=== PATIENT | female | born 1955 | race Caucasian/White ===

== ENCOUNTER 2018-03-19 19:41 | Emergency (ER) | payer OTHER ==
[~2018-03-19] VITALS: Ht 162.6 cm; Wt 79.4 kg
[~2018-03-19 19:41] MED LIST: BENICAR HCT 201 EACH PO; CELEBREX200 MG PO; JARDIANCE PO; METOPROLOL SUCC50 MG PO; NOVOLOG100 UNIT/1 SQ; OMEPRAZOLE40 MG PO; POTASSIUM CHLO10 ME1 PO; PROZAC20 MG PO; TOUJEO SQ; XANAX0.5 MG PO
[2018-03-19] MEDS ORDERED: SODIUM CHLORIDE 0.9% 1000ML 1,000 ML IV STA (20:32)
[2018-03-19] MEDS ORDERED: HYOSCYAMINE SULFATE 0.5 MG/ML AMP IV ONE (20:45)
[2018-03-19] MEDS ORDERED: METOCLOPRAMIDE HCL 10 MG/2ML VIAL IV ONE (20:45)
[2018-03-19] MEDS ORDERED: DIPHENHYDRAMINE HCL INJ 50 MG/ML VIAL IV ONE (20:45)
[2018-03-19 21:14] LABS: CLARITY,URINE CLEAR (CLEAR); COLOR,URINE YELLOW (YELLOW); KETONES,URINE NEGATIVE (NEGATIVE); LEUKOCYTE ESTERASE ,URINE NEGATIVE (NEGATIVE); NITRITE,URINE NEGATIVE (NEGATIVE); PROTEIN,URINE DIPSTICK 1+ (NEGATIVE); URINE UROBILINOGEN 0.2 mg/dL (0.2 - 1)
[2018-03-19 21:15] LABS: BILIRUBIN,URINE 1+ (NEGATIVE)
[2018-03-19] MEDS ORDERED: DICYCLOMINE HCL 20 MG/2 ML VIAL IM ONE (21:30)
[2018-03-19 22:22] LABS: BASOPHILS % 0.3 % (0.0-1.0); EOSINOPHILS # (AUTO) 0.2 (0.0-0.4); EOSINOPHILS % 1.2 % (0.0-6.0); HEMATOCRIT 45.7 % (34.2-44.1); HEMOGLOBIN 15.8 g/dL (12.0-16.0); LYMPHOCYTES # (AUTO) 3.2 (1.0-3.2); LYMPHOCYTES % 24.8 % (18.0-39.1); MEAN CORPUSCULAR HEMOGLOBIN 28.7 pg (28-32); MEAN CORPUSCULAR HGB CONC 34.6 g/dL (31-35); MEAN CORPUSCULAR VOLUME 83.1 fL (81-99); MONOCYTES # (AUTO) 1.2 (0.2-0.8); MONOCYTES % 9.4 % (4.4-11.3); NEUTROPHILS # (AUTO) 8.2 (2.1-6.9); NEUTROPHILS % 63.7 % (38.7-80.0); PLATELET COUNT 338 x10e3/uL (140-360); RED CELL DISTRIBUTION WIDTH 12.6 % (11.7-14.4)
[2018-03-19 22:44] LABS: ALANINE AMINOTRANSFERASE 26 IU/L (0-55); ALBUMIN 3.7 g/dL (3.5-5.0); ALKALINE PHOSPHATASE 50 IU/L (40-150); AMYLASE 15 U/L (25-125); ANION GAP 15.1 mmol/L (8-16); BLOOD UREA NITROGEN 14 mg/dL (7-26); BUN/CREATININE RATIO 17 (6-25); CALCIUM 9.8 mg/dL (8.4-10.2); CARBON DIOXIDE 29 mmol/L (22-29); CHLORIDE 91 mmol/L (98-107); CREATININE, SERUM 0.83 mg/dL (0.57-1.11); EST GLOMERULAR FILTRATION RATE > 60 ML/MIN (60-); GLUCOSE 193 mg/dL (74-118); LIPASE 14 U/L (8-78); MAGNESIUM 1.5 MG/DL (1.3-2.1); POTASSIUM 3.1 mmol/L (3.5-5.1); SODIUM 132 mmol/L (136-145)
== END 2018-03-20 01:07 | disposition home or self-care (01) ==
LOC: ER 19:41
DX: R11.2 Nausea with vomiting, unspecified (principal); R19.7 Diarrhea, unspecified; E11.65 Type 2 diabetes mellitus with hyperglycemia; I10 Essential (primary) hypertension; E78.5 Hyperlipidemia, unspecified; K58.9 Irritable bowel syndrome, unspecified; F32.9 Major depressive disorder, single episode, unspecified
CPT/HCPCS: 36415; 80053; 81001; 82150; 83690; 83735; 85025; 99283; J0500; J1200; J1980; J2765; J7030

== ENCOUNTER → 2018-10-28 | Day surgery (SDC) | payer OTHER ==
[2018-10-25 13:58] LABS: BASOPHILS # (AUTO) 0.1 (0.0-0.1); BASOPHILS % 0.5 % (0.0-1.0); EOSINOPHILS # (AUTO) 0.4 (0.0-0.4); HEMATOCRIT 43.6 % (34.2-44.1); HEMOGLOBIN 14.2 g/dL (12.0-16.0); LYMPHOCYTES # (AUTO) 2.8 (1.0-3.2); LYMPHOCYTES % 23.4 % (18.0-39.1); MEAN CORPUSCULAR HEMOGLOBIN 27.5 pg (28-32); MEAN CORPUSCULAR HGB CONC 32.6 g/dL (31-35); MEAN CORPUSCULAR VOLUME 84.5 fL (81-99); MONOCYTES % 8.2 % (4.4-11.3); NEUTROPHILS # (AUTO) 7.8 (2.1-6.9); NEUTROPHILS % 64.6 % (38.7-80.0); PLATELET COUNT 277 x10e3/uL (140-360); RED BLOOD COUNT 5.16 x10e6/uL (3.6-5.1); RED CELL DISTRIBUTION WIDTH 13.3 % (11.7-14.4)
[2018-10-25 14:11] LABS: ANION GAP 13.8 mmol/L (8-16); BLOOD UREA NITROGEN 13 mg/dL (7-26); BUN/CREATININE RATIO 17 (6-25); CALCIUM 9.6 mg/dL (8.4-10.2); CARBON DIOXIDE 25 mmol/L (22-29); CHLORIDE 99 mmol/L (98-107); CREATININE, SERUM 0.75 mg/dL (0.57-1.11); EST GLOMERULAR FILTRATION RATE > 60 ML/MIN (60-); GLUCOSE 226 mg/dL (74-118); POTASSIUM 3.8 mmol/L (3.5-5.1); SODIUM 134 mmol/L (136-145)
--- NOTE | 2018-10-25 14:13 | Diagnostic Imaging Report ---
EXAMINATION: PA and lateral views of the chest. COMPARISON: None CLINICAL HISTORY: Preoperative exam for foot surgery DISCUSSION: The lungs are well-inflated. No focal airspace consolidation, pleural effusion, or pneumothorax. Heart size is at the upper limits of normal without overt pulmonary edema. No acute osseous abnormality. IMPRESSION: Borderline cardiomegaly without vascular decompensation. Signed by: Dr. Jose Hardy M.D. on 10/25/2018 2:10 PM
[~2018-10-28] MED LIST changes: +ACETAMINOPHEN 1000 MG/100 ML IV ONE; +ALPRAZOLAM0.5 MG PO; +ATENOLOL50 MG PO; +BUPIVACAINE HCL 0.5% INJ 30 ML VIAL INJ ONE; +CEFAZOLIN SOD 2 GM/D5W 50ML 50 ML IV ONE; +DESFLURANE 240 ML BTL INH ONE; +DEXAMETHASONE SOD PHOS INJ 4 MG/ML VIAL ONE; +EPHEDRINE SULFATE INJ 50 MG/10 ML SYR ONE; +FENTANYL CITRATE/PF 100MCG/2 ML INJ ONE; +GLYCOPYRROLATE INJ 1MG/ 5 ML SYR ONE; +HUMALOG100 UNIT/1 SC; +IRBESARTAN150 MG PO; +LIDOCAINE HCL 2% LOCAL INJ 5 ML SDV VIAL INJ ONE; +LUNESTA3 MG PO; +METHIMAZOLE5 MG PO; +MIDAZOLAM HCL 2 MG/2 ML VIAL ONE; +MUPIROCIN 2% OINT 22 GM TUBE ONE; +NEOSTIGMINE 5 MG/5ML SYR ONE; +ONDANSETRON HCL INJ 2 MG/ML VIAL ONE; +PROPOFOL IV EMULSION 10 MG/ML 20 ML VIAL ONE; +ROCURONIUM BROMIDE 10 MG/ML 5ML VIAL ONE; +TRESIBA SC; +VIT D2 PO; +ZETIA10 MG PO
--- OUTSIDE RECORDS SUMMARY | 2018-10-28 05:15 | XMS REPORT ---
Author Author Dain Smart [facility] eClinicalWorks Address Unknown Phone Unavailable Care Team Providers Care Insurance Marketing Specialist Name Role Phone Dain Smart Unavailable Allergies No Known Allergies Problems Problem Type Condition Code Onset Dates Condition Status Assessment Type 2 diabetes mellitus without complications E11.9 Active Assessment Nontoxic goiter, unspecified E04.9 Active Problem Hypothyroidism, unspecified E03.9 Active Problem Gastro-esophageal reflux disease with esophagitis K21.0 Active Problem Thyrotoxicosis, unspecified without thyrotoxic crisis or storm E05.90 Active Problem Type 2 diabetes mellitus without complications E11.9 Active Problem Mixed hyperlipidemia E78.2 Active Problem Nontoxic multinodular goiter E04.2 Active Problem Nontoxic goiter, unspecified E04.9 Active Medications No Known Medications Results No Known Results Summary Purpose eClinicalWorks Submission
--- OUTSIDE RECORDS SUMMARY | 2018-10-28 05:15 | XMS REPORT | Continuity of Care Document ---
Author Author [facility] Interface Address Unknown Phone Unavailable Problems Problem Status Onset Date Classification Date Reported Comments Source Neuropathic pain Active Problem 08/11/2018 Jorge Alvarez Inflammatory arthropathy Active Problem 08/11/2018 Jorge Alvarez Thyrotoxicosis, unspecified without thyrotoxic crisis or storm Active Problem 08/05/2018 [facility] Gastro-esophageal reflux disease with esophagitis Active Problem 08/05/2018 [facility] Hypothyroidism, unspecified Active Problem 08/05/2018 [facility] Type 2 diabetes mellitus without complications Active Problem 08/05/2018 [facility] Mixed hyperlipidemia Active Problem 08/05/2018 [facility] Nontoxic multinodular goiter Active Problem 08/05/2018 [facility] Nontoxic goiter, unspecified Active Problem 08/05/2018 [facility] [place]UMBAGO Active [facility] [place] Medications Medication Details Route Status Patient Instructions Ordering Provider Order Date Source Vitamin D (Ergocalciferol) 1 capsule Orally Active 88651 UNIT Orally Once a week Namrata 07/04/2018 Jorge Alvarez Amitriptyline HCl 1 tablet Orally Active 25 MG Orally Once a day Namrata 06/29/2018 Jorge Alvarez Hydroxychloroquine Sulfate 1 tablet with food or milk Orally Active 200 MG Orally bid Namrata 06/29/2018 Jorge Alvarez Metoprolol Succinate as directed Orally Active 100 MG Orally Namrata Jorge Alvarez Fluoxetine 1 capsule in the morning Orally Active 20 MG Orally Once a day Namrata Jorge Alvarez Vitamin D 1 tablet Orally Active 1000 UNIT Orally Once a day Namrata Jorge Alvarez Alprazolam 1 tablet Orally Active 1 MG Orally Twice a day Namrata Jorge Alvarez Pantoprazole Sodium 1 tablet Orally Active 40 MG Orally Once a day Namrata Jorge Alvarez Eszopiclone 1 tablet immediately before bedtime Orally Active 3 MG Orally Once a day Namrata Jorge Alvarez Methimazole 1 tablet with food Orally Active 5 MG Orally Once a day Namrata Jorge Alvarez Olmesartan Medoxomil-HCTZ 1 tablet Orally Active 40-12.5 MG Orally Once a day Namrata Jorge Alvarez Celecoxib 1 capsule with food Orally Active 200 MG Orally Once a day Namrata Jorge Alvarez Klor-Con Sprinkle 1 capsule with food Orally Active 10 MEQ Orally Twice a day Namrata Jorge Alvarez Allergies, Adverse Reactions, Alerts Substance Category Reaction Severity Reaction type Status Date Reported Comments Source codine Adverse Reaction Info Not Available Adverse Reaction Active 06/29/2018 Jorge Alvarez catapres Adverse Reaction Info Not Available Adverse Reaction Active 06/29/2018 Jorge Alvarez prednisone Adverse Reaction Info Not Available Adverse Reaction Active 06/29/2018 Jorge Alvarez morphine Adverse Reaction Info Not Available Adverse Reaction Active 06/29/2018 Jorge Alvarez crestor Adverse Reaction Info Not Available Adverse Reaction Active 06/29/2018 Jorge Alvarez aspirin Adverse Reaction Info Not Available Adverse Reaction Active 06/29/2018 Jorge Alvarez iodine Adverse Reaction Info Not Available Adverse Reaction Active 06/29/2018 Jorge Alvarez Immunizations Immunization Date Given Site Status Last Updated Comments Source Results Order Name Results Value Reference Range Date Interpretation Comments Source Vital Signs Vital Sign Value Date Comments Source Weight 182.4 06/29/2018 Jorge Alvarez Height 63 06/29/2018 Jorge Alvarez Temperature Oral (F) 97.6 F 06/29/2018 Jorge lAvarez Heart Rate 72 06/29/2018 Jorge Alvarez Diastolic (mm Hg) 86 06/29/2018 Jorge Alvarez Systolic (mm Hg) 142 06/29/2018 Jorge Alvarez Encounters Location Location Details Encounter Type Encounter Number Reason For Visit Attending Provider ADM Date DC Date Status Source Outpatient [id number] [facility] 08/13/2015 Active [facility] Nutritional Counceling - faxed [id number] 08/30/2015 08/30/2015 [facility] Nutritional Counceling - faxed [id number] 08/30/2015 08/30/2015 [facility] Test results [id number] 09/09/2015 09/09/2015 [facility] Test results [id number] 09/09/2015 09/09/2015 [facility] Auth From ([employer]) For Nutritional Counseling - Approved [id number] 09/12/2015 09/12/2015 [facility] Auth From ([employer]) For Nutritional Counseling - Approved [id number] 09/12/2015 09/12/2015 [facility] PreCertification - Nutrition Education Approved/Faxed - notified [id number] 12/11/2015 12/11/2015 [facility] [id number] [facility]/15[facility]2016 Active [facility] [id number] [facility] 12/23/2016 Active [facility] Procedures Procedure Code Date Perfomer Comments Source
--- OUTSIDE RECORDS SUMMARY | 2018-10-28 05:15 | XMS REPORT ---
Author Rigoberto Quintero Organization eClinicalWorks Address Unknown Phone Unavailable Care Team Providers Care Entry Level Accountant Name Role Phone Rigoberto Alvarez CP Unavailable Allergies No Known Allergies Problems Problem Type Condition Code Onset Dates Condition Status Problem Neuropathic pain M79.2 Active Problem Inflammatory arthropathy M19.90 Active Medications No Known Medications Results No Known Results Summary Purpose eClinicalWorks Submission
--- OUTSIDE RECORDS SUMMARY | 2018-10-28 05:15 | XMS REPORT ---
Author Rigoberto Quintero Organization eClinicalWorks Address Unknown Phone Unavailable Care Team Providers Care Contract Administrative Assistant Name Role Phone Rigoberto Alvarez CP Unavailable Allergies No Known Allergies Problems Problem Type Condition Code Onset Dates Condition Status Problem Neuropathic pain M79.2 Active Problem Inflammatory arthropathy M19.90 Active Medications No Known Medications Results No Known Results Summary Purpose eClinicalWorks Submission
--- OUTSIDE RECORDS SUMMARY | 2018-10-28 05:15 | XMS REPORT ---
Author Author Dain Smart [facility] eClinicalWorks Address Unknown Phone Unavailable Care Team Providers Care Water Proofer Name Role Phone Dain Smart Unavailable Allergies No Known Allergies Problems Problem Type Condition Code Onset Dates Condition Status Problem Thyrotoxicosis, unspecified without thyrotoxic crisis or storm E05.90 Active Problem Gastro-esophageal reflux disease with esophagitis K21.0 Active Problem Hypothyroidism, unspecified E03.9 Active Problem Type 2 diabetes mellitus without complications E11.9 Active Problem Mixed hyperlipidemia E78.2 Active Problem Nontoxic multinodular goiter E04.2 Active Problem Nontoxic goiter, unspecified E04.9 Active Medications No Known Medications Results No Known Results Summary Purpose eClinicalWorks Submission
--- OUTSIDE RECORDS SUMMARY | 2018-10-28 05:15 | XMS REPORT ---
[facility] Address Unknown Phone Unavailable Care Team Providers Care Vice President Sales And Marketing Name Role Phone MARYSOL CHEN Unavailable Unavailable Problems This patient has no known problems. Allergies, Adverse Reactions, Alerts This patient has no known allergies or adverse reactions. Medications This patient has no known medications. Results Test Description Test Time Test Comments Text Results Atomic Results Result Comments CHEST 2 VIEWS 2018-10-25 14:08:00 [place] [address] Patient Name: LUDWIN PRATT MR #: [id number] : 1955 Age/Sex: 63/F Req #: [id number] Adm Physician: Ordered by: MARYSOL CHEN DP Report #: [id number] Location: OR Room/Bed: Procedure: [id number] DX/CHEST 2 VIEWS Exam Date: 10/25/18 Exam Time: 1325 REPORT STATUS: Signed EXAMINATION: PA and lateral views of the chest. SMILEY RISON: None CLINICAL HISTORY: Preoperative exam for foot surgery DISCUSSION: The lungs are well-inflated. No focal airspace consolidation, pleural effusion, or pneumothorax. Heart size is at the upper limits of normal without overt pulmonary edema. No acute osseous abnormality. IMPRESSION: Borderline cardiomegaly without vascular decompensation. Signed by: Dr. Jayden Chatman M.D. on 10/25/2018 2:10 PM Dictated By: JAYDEN CHATMAN MD 141 Transcribed By: ZULMA on 10/25/18 1410 COPY TO: MARYSOL CHEN DPM
--- OUTSIDE RECORDS SUMMARY | 2018-10-28 05:15 | XMS REPORT ---
Author Author Dain Smart eClinicalWorks Address Unknown Phone Unavailable Care Team Providers Care Homicide Squad Captain Name Role Phone Dain Smart Unavailable Encounters Encounter Location Date Nutritional Counceling - faxed [facility] Aug 30, 2015 Test results [facility] Sep 09, 2015 Auth From ([employer]) For Nutritional Counseling - Approved [facility] Sep 12, 2015 Problems Problem Type Condition ICD-9 Code Onset Dates Condition Status Problem Type 2 diabetes mellitus without complications E11.9 Active Problem Mixed hyperlipidemia E78.2 Active Problem Nontoxic goiter, unspecified E04.9 Active Social History Social History Element Qualifiers Date Reported Tobacco Use: . Patient is a: never smoker Aug 29, 2015 Alchohol: . yes Aug 29, 2015 Summary Purpose eClinicalWorks Submission
--- OUTSIDE RECORDS SUMMARY | 2018-10-28 05:15 | XMS REPORT ---
Author Author Toby Ott [facility] eClinicalWorks Address Unknown Phone Unavailable Care Team Providers Care Area Plant Manager Name Role Phone Toby Ott Unavailable Allergies No Known Allergies Problems Problem Type Condition Code Onset Dates Condition Status Problem Neuropathic pain M79.2 Active Problem Inflammatory arthropathy M19.90 Active Medications Medication Code System Code Instructions Start Date End Date Status Dosage Vitamin D (Ergocalciferol) [facility] [id number] 02480 UNIT Orally Once a week Jul 04, 2018 Active 1 capsule Results No Known Results Summary Purpose eClinicalWorks Submission
--- OUTSIDE RECORDS SUMMARY | 2018-10-28 05:15 | XMS REPORT ---
Author Author Dain Smart eClinical[employer] Address Unknown Phone Unavailable Care Team Providers Care Clinical Asst Name Role Phone Dain Smart Unavailable Encounters Encounter Location Date PreCertification - Nutrition Education Approved/Faxed - notified [facility] Dec 11, 2015 [facility] Test results [facility] Sep 09, 2015 Auth From ([employer]) For Nutritional Counseling - Approved [facility] Sep 12, 2015 Problems Problem Type Condition [...]
--- OUTSIDE RECORDS SUMMARY | 2018-10-28 05:15 | XMS REPORT ---
Author Author Toby Ott [facility] eClinicalWorks Address Unknown Phone Unavailable Care Team Providers Care Multimedia Engineer Name Role Phone Toby Ott CP Unavailable Allergies, Adverse Reactions, Alerts Substance Reaction Event Type codine Info Not Available Non Drug Allergy catapres Info Not Available Non Drug Allergy prednisone Info Not Available Non Drug Allergy morphine Info Not Available Non Drug Allergy crestor Info Not Available Non Drug Allergy aspirin Info Not Available Non Drug Allergy iodine Info Not Available Non Drug Allergy Problems Problem Type Condition Code Onset Dates Condition Status Problem Neuropathic pain M79.2 Active Assessment Inflammatory arthropathy M19.90 Active Problem Inflammatory arthropathy M19.90 Active Assessment Neuropathic pain M79.2 Active Medications Medication Code System Code Instructions Start Date End Date Status Dosage Metoprolol Succinate NDC 0 100 MG Orally Active as directed Amitriptyline HCl ND 80619976775 25 MG Orally Once a day Jun 29, 2018 Active 1 tablet Fluoxetine NDC 0 20 MG Orally Once a day Active 1 capsule in the morning Vitamin D ND 93519965902 1000 UNIT Orally Once a day Active 1 tablet Hydroxychloroquine Sulfate ND 68342281648 200 MG Orally bid Jun 29, 2018 Active 1 tablet with food or milk Alprazolam ND 74882842399 1 MG Orally Twice a day Active 1 tablet Pantoprazole Sodium ND 47526459143 40 MG Orally Once a day Active 1 tablet Eszopiclone ND 64433899650 3 MG Orally Once a day Active 1 tablet immediately before bedtime Methimazole ND 84381735077 5 MG Orally Once a day Active 1 tablet with food Olmesartan Medoxomil-HCTZ ND 41136988593 40-12.5 MG Orally Once a day Active 1 tablet Celecoxib ND 54327578283 200 MG Orally Once a day Active 1 capsule with food Klor-Con Sprinkle ND 91324781150 10 MEQ Orally Twice a day Active 1 capsule with food Vital Signs Date/Time: Jun 29, 2018 BMI 32.31 Index Weight 182.4 lbs Height 63 in Temperature 97.6 F Cardiac Monitoring Heart Rate 72 /min Blood Pressure Diastolic 86 mm Hg Blood Pressure Systolic 142 mm Hg Results No Known Results Summary Purpose eClinicalWorks Submission
[2018-10-28 06:37] LABS: BASOPHILS # (AUTO) 0.1 (0.0-0.1); BASOPHILS % 0.5 % (0.0-1.0); EOSINOPHILS # (AUTO) 0.4 (0.0-0.4); EOSINOPHILS % 2.9 % (0.0-6.0); HEMATOCRIT 39.4 % (34.2-44.1); LYMPHOCYTES # (AUTO) 3.1 (1.0-3.2); MEAN CORPUSCULAR HEMOGLOBIN 27.1 pg (28-32); MEAN CORPUSCULAR VOLUME 82.3 fL (81-99); MONOCYTES # (AUTO) 1.3 (0.2-0.8); MONOCYTES % 9.7 % (4.4-11.3); NEUTROPHILS % 62.4 % (38.7-80.0); PLATELET COUNT 304 x10e3/uL (140-360); RED BLOOD COUNT 4.79 x10e6/uL (3.6-5.1); RED CELL DISTRIBUTION WIDTH 13.5 % (11.7-14.4)
[2018-10-28 10:15] VITALS: BP 142/75
--- NOTE | 2018-10-28 11:18 | Operative Report ---
DATE OF PROCEDURE: October 28, 2018 PREOPERATIVE DIAGNOSES 1. Ruptured Achilles tendon, left foot. 2. Plantar fasciitis, left foot. 3. Heel spur, plantar aspect, left foot. 4. Heel spur, posterior aspect, left foot. 5. Contracted gastrocnemius soleus equinus, left foot. POSTOPERATIVE DIAGNOSES 1. Ruptured Achilles tendon, left foot. 2. Plantar fasciitis, left foot. 3. Heel spur, plantar aspect, left foot. 4. Heel spur, posterior aspect, left foot. 5. Contracted gastrocnemius soleus equinus, left foot. TITLE OF OPERATIONS 1. Repair of the Achilles tendon, left foot. 2. Endoscopic plantar fasciotomy, left foot. 3. Resection of the heel spur, left foot. 4. Gastrocnemius soleus recession, left foot. ANESTHESIA: General endotracheal. HEMOSTASIS: Left thigh tourniquet, 350 mmHg. PROCEDURE IN DETAIL: The patient was taken to the operating room in a mildly sedated state and placed upon the operating table in supine position. Following induction of general anesthetic, the left lower extremity was elevated to 60 degrees to exsanguinate before inflating pneumatic thigh tourniquet to 350 mmHg hemostasis. The lower extremity was then placed upon the operating table prior to performing the following procedures. Procedure #1 is the endoscopic plantar fasciotomy, left foot. A medial stab incision was placed at the medial aspect of the calcaneus at the insertion of the plantar fascia. The incision was deepened via sharp and blunt dissection at the level of dorsal capsular structure. Care was taken to identify and retract all vital structures encountered. The fascia was identified and medial band elongated as well as central band utilizing a hook knife. The area was irrigated and attention was directed to the plantar aspect of the heel. A separate incision was placed and a rasp was used to remove the plantar heel spur. That area tolerated the procedure well, irrigated and closed with 4-0 nylon. Patient was then directed to the prone position and re-prepped and draped. The left foot was then approached at the posterior aspect for resection of the posterior heel spur and repair of the inflamed partially ruptured Achilles tendon. A curvilinear incision was made at the posterior aspect of the heel. That incision was deepened via sharp and blunt dissection and that spurring on the posterior aspect of the heel was identified. The thickened, inflamed, hypertrophic, partially ruptured Achilles tendon was identified and reflected from the underlying bone spur. The spur itself was then resected utilizing an oscillating saw. A remodeling and repair of the tendon was performed with FiberWire. The tendon was inserted into the posterior aspect of the calcaneus with an anchor. A human tissue allograft was applied to the posterior aspect of the heel. After copious irrigation it was noted that there was a significant contracture of the gastrocnemius soleus complex. A separate incision was made for gastrocnemius equinus recession. A linear incision was made approximately 2 cm in length and a transverse Mohamud procedure was performed, which allowed for a pulling down and elongation of the Achilles complex. This having been accomplished, that area was irrigated and closed with 3-0 Vicryl, 4-0 nylon, as was the skin overlying the repaired and reattached Achilles with human tissue allograft after closure. The area was blocked with 0.5 Marcaine. No steroid was used in the area of the surgery. A posterior splint was applied and the appropriate mildly compressive dressings were applied. The release of pneumatic thigh tourniquet showed a normal hyperemic flush to the posterior aspect of the left foot. The patient left the operating room with vital signs stable in apparent satisfactory condition, having tolerated both anesthetic and procedure very well. Job#: [id number]
== END | disposition home or self-care (01) ==
LOC: OR 05:13
PROVIDERS: ATTEND Podiatrist Foot Surgery
DX: S86.012A Strain of left Achilles tendon, initial encounter (principal); M72.2 Plantar fascial fibromatosis; M77.32 Calcaneal spur, left foot; M24.575 Contracture, left foot; J45.909 Unspecified asthma, uncomplicated; I10 Essential (primary) hypertension; E11.9 Type 2 diabetes mellitus without complications; E05.90 Thyrotoxicosis, unspecified without thyrotoxic crisis or storm; X58.XXXA Exposure to other specified factors, initial encounter; Z88.6 Allergy status to analgesic agent; Z91.041 Radiographic dye allergy status; Z01.810 Encounter for preprocedural cardiovascular examination; Z01.812 Encounter for preprocedural laboratory examination; Z01.818 Encounter for other preprocedural examination; Z79.4 Long term (current) use of insulin; Z86.2 Personal history of diseases of the blood and blood-forming organs and certain disorders involving the immune mechanism
CPT/HCPCS: 27650; 27687; 28104; 28118; 29893; 36415 ×2; 71046; 80048; 82948; 85025 ×2; 93005; J0131; J0690; J1100; J2001; J2250; J2405; J2704; J3490; 76001

== ENCOUNTER 2024-12-18 14:03 | Outpatient (RCR) | payer MEDICARE ==
[~2024-12-18 14:03] MED LIST changes: -ACETAMINOPHEN 1000 MG/100 ML IV ONE; -BUPIVACAINE HCL 0.5% INJ 30 ML VIAL INJ ONE; -CEFAZOLIN SOD 2 GM/D5W 50ML 50 ML IV ONE; -DESFLURANE 240 ML BTL INH ONE; -DEXAMETHASONE SOD PHOS INJ 4 MG/ML VIAL ONE; -EPHEDRINE SULFATE INJ 50 MG/10 ML SYR ONE; -FENTANYL CITRATE/PF 100MCG/2 ML INJ ONE; -GLYCOPYRROLATE INJ 1MG/ 5 ML SYR ONE; -LIDOCAINE HCL 2% LOCAL INJ 5 ML SDV VIAL INJ ONE; -MIDAZOLAM HCL 2 MG/2 ML VIAL ONE; -MUPIROCIN 2% OINT 22 GM TUBE ONE; -NEOSTIGMINE 5 MG/5ML SYR ONE; -ONDANSETRON HCL INJ 2 MG/ML VIAL ONE; -PROPOFOL IV EMULSION 10 MG/ML 20 ML VIAL ONE; -ROCURONIUM BROMIDE 10 MG/ML 5ML VIAL ONE
== END 2024-12-29 ==
LOC: PT 14:03
PROVIDERS: ATTEND Otolaryngology
DX: H81.90 Unspecified disorder of vestibular function, unspecified ear (principal)

== ENCOUNTER 2025-01-02 12:52 | Outpatient (RCR) | payer MEDICARE | END 2025-01-26 | LOC: PT 12:52 | PROVIDERS: ATTEND Otolaryngology | DX: H81.90 Unspecified disorder of vestibular function, unspecified ear (principal) ==